=== PATIENT | female | born 1990 | race American Indian/Alaskan Native ===

== ENCOUNTER 2016-10-11 20:24 | Emergency (ER) | payer MEDICAID ==
[2016-10-11 21:06] VITALS: BP 127/76
== END 2016-10-11 20:39 | disposition left against medical advice (07) ==
LOC: ED 20:24
DX: R11.0 Nausea (principal); Z53.21 Procedure and treatment not carried out due to patient leaving prior to being seen by health care provider

== ENCOUNTER 2016-10-18 09:32 | Emergency (ER) | payer SELFPAY ==
[2016-10-18] MEDS ORDERED: NACL 0.9% 1000 ML 1,000 ML IV ONE (10:18)
[2016-10-18 10:20] VITALS: BP 121/85
--- NOTE | 2016-10-18 10:22 | Emergency Department Report ---
Entered by REYNALDO DAWN, acting as scribe for SHAVON SMITH NP. Chief Complaint: Chest Pain Stated Complaint: CHEST PAIN/COUGH/SEVERE NAUSEA/10 WKS PREG Time Seen by Provider: 10/18/16 10:14 - HPI History of Present Illness: 26 y/o female presents with cough that started 9 days ago. Sx include n/v, abd pain and cold Sx. Pt notes being about 9 weeks . She also notes being here 4 days ago but left because the wait was long. - ROS Review of Systems: +abd pain +cough +cold Sx +n/v - Exam Vital Signs: Vital Signs 10/18/16 10:16 Temperature 98.5 F Pulse Rate 87 Respiratory 20 Rate Blood Pressure 121/85 O2 Sat by Pulse 98 Oximetry Physical Exam: no respiratory distress no wheezing or rhonchi noted MSE screening note: Focused history and physical exam performed. Due to findings the following was ordered: labs, IVFs ED Disposition for MSE Condition: Stable This documentation as recorded by the scribe,REYNALDO DAWN,accurately reflects the service I personally performed and the decisions made by SARAH villegas TRACY M, NP.
[2016-10-18 11:19] LABS: Basophils % (Auto) 0.5 % (0.0-1.8); Eosinophils % (Auto) 0.2 % (0.0-4.3); Hematocrit 34.8 % (30.3-42.9); Hemoglobin 11.1 gm/dl (10.1-14.3); Mean Corpuscular HGB Conc 32 % (30-34); Mean Corpuscular Hemoglobin 25 pg (28-32); Mean Corpuscular Volume 77 fl (79-97); Platelet Count 270 K/mm3 (140-440); Red Blood Count 4.52 M/mm3 (3.65-5.03); Red Cell Distribution Width 18.3 % (13.2-15.2)
[2016-10-18 11:40] LABS: Alanine Aminotransferase 9 units/L (7-56); Albumin 4.4 g/dL (3.9-5); Albumin/Globulin Ratio 1.1 %; Alkaline Phosphatase 46 units/L (35-129); Anion Gap 22 mmol/L; Blood Urea Nitrogen 9 mg/dL (7-17); Calcium 9.8 mg/dL (8.4-10.2); Carbon Dioxide 22 mmol/L (22-30); Glucose 82 mg/dL (65-100); Sodium 135 mmol/L (137-145); Total Protein 8.5 g/dL (6.3-8.2)
[2016-10-18 11:51] LABS: Bilirubin,Urine NEG (Negative); Blood,Urine NEG (Negative); Ketones,Urine 80 mg/dL (Negative); Leukocyte Esterase,Urine NEG (Negative); Mucus,Urine 3+ /HPF; Nitrite,Urine NEG (Negative)
[2016-10-18] MEDS ORDERED: REGLAN IV ONE (12:33)
--- NOTE | 2016-10-18 12:49 | Emergency Department Report ---
- General Chief Complaint: Upper Respiratory Infection Stated Complaint: CHEST PAIN/COUGH/SEVERE NAUSEA/10 WKS PREG Time Seen by Provider: 10/18/16 10:14 Source: patient Mode of arrival: Ambulatory Limitations: No Limitations - History of Present Illness Initial Comments: This is a 26-year-old female nontoxic, well nourished in appearance, no acute signs of distress deficit ED complaining of yellow/green productive cough and rhinorrhea 9 days. The child states she has intermittent nausea vomiting 9 weeks. The patient states she is 9 weeks and is confirmed with her [employer] 3 weeks ago. Last visit with OB was 3 weeks ago with normal exam. Patient stated n/v is normal during her pregnancies. Patient denies any vaginal bleeding, abdominal pain, fever, chills, nausea, vomiting, chest pain, short of breath, stiff neck, or headache. Patient denies any sick contact. Denies any drug allergies or past medical history. MD Complaint: cough, rhinorrhea, other (nausea vomiting) -: Gradual, days(s) (9) Severity: mild Severity scale (0 -10): 0 Consistency: constant Worsens With: nothing Associated Symptoms: denies other symptoms, rhinorrhea, cough, nausea, vomiting. denies: fever, chills, myalgias, diaphoresis, headache, nasal congestion, sore throat, stiff neck, chest pain, shortness of breath, abdominal pain, diarrhea, dysuria, rash, confusion, right sweats, weight loss, epistaxis, hoarseness, ear pain Treatments Prior to Arrival: none - Related Data Previous Rx's Medication Instructions Recorded Last Taken Type Amoxicillin 500 mg PO BID #20 capsule 10/18/16 Unknown Rx Doxylamine/Pyridoxine HCl 1 each PO BID #30 tablet. 10/18/16 Unknown Rx [Anna Reid 10-10 mg Tablet] Allergies Allergy/AdvReac Type Severity Reaction Status Date / Time No Known Allergies Allergy Unverified 10/11/16 21:08 ED Review of Systems ROS: Stated complaint: CHEST PAIN/COUGH/SEVERE NAUSEA/10 WKS PREG Other details as noted in HPI Constitutional: denies: chills, fever Eyes: denies: eye pain, eye discharge, vision change ENT: denies: ear pain, throat pain Respiratory: cough. denies: shortness of breath, SOB with exertion, SOB at rest , wheezing Cardiovascular: denies: chest pain, palpitations Endocrine: no symptoms reported Gastrointestinal: nausea, vomiting. denies: abdominal pain, diarrhea, constipation, hematemesis, melena, hematochezia Genitourinary: denies: urgency, dysuria, discharge Musculoskeletal: denies: back pain, joint swelling, arthralgia Skin: denies: rash, lesions Neurological: denies: headache, weakness, paresthesias Psychiatric: denies: anxiety, depression Hematological/Lymphatic: denies: easy bleeding, easy bruising ED Past Medical Hx - Past Medical History Previous Medical History?: Yes Additional medical history: vaginal dleivery x 2 - Surgical History Past Surgical History?: Yes Additional Surgical History: [place] tooth removed, Dental surgery - Social History Smoking Status: Never Smoker Substance Use Type: Non Opiate Pain - Medications Home Medications: Home Medications Medication Instructions Recorded Confirmed Last Taken Type Amoxicillin 500 mg PO BID #20 capsule 10/18/16 Unknown Rx Doxylamine/Pyridoxine HCl 1 each PO BID #30 tablet. 10/18/16 Unknown Rx [Anna Reid 10-10 mg Tablet] ED Physical Exam - General Limitations: No Limitations General appearance: alert, in no apparent distress - Head Head exam: Present: atraumatic, normocephalic, normal inspection - Eye Eye exam: Present: normal appearance, PERRL, EOMI. Absent: scleral icterus, conjunctival injection, nystagmus, periorbital swelling, periorbital tenderness Pupils: Present: normal accommodation - ENT ENT exam: Present: normal exam, normal orophraynx, mucous membranes moist, TM's normal bilaterally, normal external ear exam - Neck Neck exam: Present: normal inspection, full ROM. Absent: tenderness, meningismus, lymphadenopathy, thyromegaly - Respiratory Respiratory exam: Present: normal lung sounds bilaterally. Absent: respiratory distress, wheezes, rales, rhonchi, stridor, chest wall tenderness, accessory muscle use, decreased breath sounds, prolonged expiratory - Cardiovascular Cardiovascular Exam: Present: regular rate, normal rhythm, normal heart sounds. Absent: bradycardia, tachycardia, irregular rhythm, systolic murmur, diastolic murmur, rubs, gallop - GI/Abdominal GI/Abdominal exam: Present: soft, normal bowel sounds. Absent: distended, tenderness, guarding, rebound, rigid, diminished bowel sounds - Expanded GI/Abdominal Exam Expanded GI/Abdominal exam: Absent: psoas sign, obturator sign, heel tap sign, Murray's sign, Rovsing's sign, tenderness at [place]bur[place]'s Point, ascites - Rectal Rectal exam: Present: deferred - Extremities Exam Extremities exam: Present: normal inspection, full ROM, normal capillary refill. Absent: tenderness, pedal edema, joint swelling, calf tenderness - Back Exam Back exam: Present: normal inspection, full ROM. Absent: tenderness, CVA tenderness (R), CVA tenderness (L), muscle spasm, paraspinal tenderness, vertebral tenderness, rash noted - Neurological Exam Neurological exam: Present: alert, oriented X3, CN II-XII intact, normal gait, reflexes normal - Psychiatric Psychiatric exam: Present: normal affect, normal mood - Skin Skin exam: Present: warm, dry, intact, normal color. Absent: rash ED Course Vital Signs 10/18/16 10:16 Temperature 98.5 F Pulse Rate 87 Respiratory 20 Rate Blood Pressure 121/85 O2 Sat by Pulse 98 Oximetry - Reevaluation(s) Reevaluation #1: 10/18/16 12:59 Patient is speaking in full sentences with no signs of distress noted. Reevaluation #2: 10/18/16 13:10 Patient stated n/v has subsided after medical treatment in the eD. patient tolerated by mouth challenge well with no signs of nausea vomiting. ED Medical Decision Making - Lab Data Result diagrams: 10/18/16 10:59 10/18/16 10:59 - Medical Decision Making Ed course: This is a 26-year-old female that presents with upper resp infection Pt was examined by myself. Patient is stable. Patient received Reglan IV and stated she felt much better. By mouth challenge successful with no signs of nausea or vomiting. Patient be treated with amoxicillin at discharge. Was instructed to follow-up with her resident physician/primary care doctor in 3-5 days or symptoms worsen return to emergency room as was possible. Received 1 L of normal saline in the ED. At time time of discharge, the patient does not seem toxic or ill in appearance. No acute signs of distress noted. Patient agrees to discharge treatment plan of care. No further questions noted by the patient. Critical care attestation.: If time is entered above; I have spent that time in minutes in the direct care of this critically ill patient, excluding procedure time. ED Disposition Clinical Impression: Hyperemesis gravidarum Upper respiratory infection Qualifiers: URI type: unspecified URI Qualified Code(s): J06.9 - Acute upper respiratory infection, unspecified Disposition: - TO HOME OR SELFCARE Is pt being admited?: No Does the pt Need Aspirin: No Condition: Stable Instructions: Amoxicillin (By mouth), Hyperemesis Gravidarum (ED) Additional Instructions: Follow-up with your primary care doctor/resident physician in 3-5 days or if symptoms worsen and continue return to emergency room as soon as possible. Take amoxicillin as prescribed Take doxylamine-pyridoxine as prescribed for nausea or vomiting. Initial: Two tablets at bedtime on day 1 and 2; if symptoms persist, take 1 tablet in morning and 2 tablets at bedtime on day 3; if symptoms persist, may increase to 1 tablet in morning, 1 tablet mid-afternoon, and 2 tablets at bedtime on day 4 ( maximum: doxylamine 40 mg/pyridoxine 40 mg (4 tablets) per day). Prescriptions: Amoxicillin 500 mg PO BID #20 capsule Doxylamine/Pyridoxine HCl [Anna Reid 10-10 mg Tablet] 1 each PO BID #30 tablet. Referrals: PRIMARY CARE, [Primary Care Provider] - 3-5 Days ADONAY CUELLAR MD [Staff Physician] - 3-5 Days LEANNE MIRAMONTES MD [Staff Physician] - 3-5 Days [facility] [Outside] - 3-5 Days [facility] [Outside] - 3-5 Days Forms: Work/School Release Form(ED)
== END 2016-10-18 13:25 | disposition home or self-care (01) ==
LOC: ED 09:32
DX: O21.0 Mild hyperemesis gravidarum (principal); O99.511 Diseases of the respiratory system complicating pregnancy, first trimester; J06.9 Acute upper respiratory infection, unspecified; Z3A.09 9 weeks gestation of pregnancy
CPT/HCPCS: 36415; 80053; 81001; 83690; 84702; 85025; 86900; 86901; 96361; 96374; 99283; J2765; J7030

== ENCOUNTER 2017-01-18 08:46 | Outpatient (CLI) | payer MEDICAID ==
--- NOTE | 2017-01-18 11:41 | Ultrasound Report ---
ULTRASOUND PELVIC COMPLETE ULTRASOUND TRANSVAGINAL HISTORY: Abdominal pain, pelvic pain, cyst, abscess. COMPARISON: None. TECHNIQUE: Transabdominal and transvaginal ultrasound with color doppler interrogation. FINDINGS: Uterus: The uterus is anteverted. The uterus measures 9.4 x 3.7 x 6.5 cm. No evidence for uterine mass. Cervix: Normal. Endometrium: 14 mm. Right ovary: 4.2 x 2.7 x 3.9 cm. A 2.5 cm slightly complex cyst in the right ovary is identified. Left ovary: 2.2 x 1.3 x 2.6 cm. No focal abnormality. No pelvic fluid or mass is identified. Normal color doppler interrogation. IMPRESSION: 2.5 cm complex right ovarian cyst. Consider followup in 6 weeks at a different stage of menstrual cycle.
== END 2017-01-18 08:47 | disposition home or self-care (01) ==
LOC: US 08:46
PROVIDERS: ATTEND Obstetrics & Gynecology
DX: N83.291 Other ovarian cyst, right side (principal); N85.4 Malposition of uterus
CPT/HCPCS: 76830; 76856

== ENCOUNTER 2017-04-24 09:31 | Emergency (ER) | payer MEDICAID ==
[2017-04-24 10:48] LABS: BUN/Creatinine Ratio 18; Blood Urea Nitrogen 11 mg/dL (7-17); Calcium 9.3 mg/dL (8.4-10.2); Hemolysis Index 4
[2017-04-24 10:51] LABS: Hematocrit 33.3 % (30.3-42.9); Hemoglobin 10.8 gm/dl (10.1-14.3); Mean Corpuscular HGB Conc 32 % (30-34); Mean Corpuscular Volume 77 fl (79-97); Platelet Count 238 K/mm3 (140-440); Red Blood Count 4.33 M/mm3 (3.65-5.03); Red Cell Distribution Width 15.6 % (13.2-15.2)
[2017-04-24 10:58] LABS: Mean Corpuscular Hemoglobin 25 pg (28-32)
--- NOTE | 2017-04-24 11:46 | Ultrasound Report ---
ULTRASOUND OB LESS THAN 14 WEEKS FETUS ULTRASOUND OB TRANSVAGINAL HISTORY: Cramping. COMPARISON: None. TECHNIQUE: Transabdominal and transvaginal ultrasound with color doppler interrogation. FINDINGS: Uterus: 9 x 5 x 6 cm. No uterine mass. The cervix is unremarkable. Endometrium: The endometrium is thickened up to 2.3 cm. There is either a tear-shaped gestational sac or fluid in the endometrial canal. No convincing pole, yolk sac or heart tones are demonstrated.. Right ovary: 4.3 x 2.2 x 3.5 cm. Probable 2.7 cm corpus luteum cyst. Left ovary: 2.3 x 1.6 x 1.3 cm. No focal abnormality. No pelvic fluid or mass is identified. Normal color doppler interrogation. IMPRESSION: No viable intrauterine is identified at this time. There is a slightly abnormal appearing gestational sac or fluid in the endometrial canal. No pole or heart tones at this time. This could represent a very early or blighted ovum. Close interval followup is recommended.
[2017-04-24 12:38] LABS: Bilirubin,Urine NEG (Negative); Blood,Urine NEG (Negative); Color,Urine Yellow (Yellow); Mucus,Urine 2+ /HPF; Protein,Urine <15 mg/dL mg/dL (Negative)
--- NOTE | 2017-04-24 14:07 | Emergency Department Report ---
HPI - General Chief Complaint: Medical Clearance Time Seen by Provider: 04/24/17 13:45 - HPI HPI: 26 year-old female presents the emergency department with complaint of possible . 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 She says her last menstrual cycle was March 22. Prior to that she had a positive home test and then after the , after she started bleeding, she had a negative home test. She has not seen an RETAIL STOCK CLERK yet. She says that the last few days she has woke up feeling "shaky" and that prompted her to take a home test today which came back positive. She denies any past medical history. She does not currently have an RETAIL STOCK CLERK. She has not taken anything for her symptoms have presentation. She denies any vaginal bleeding, abdominal or pelvic pain, back pain, nausea, vomiting or fever. No recent travel or sick contacts at home. ED Past Medical Hx - Past Medical History Previous Medical History?: No Additional medical history: vaginal dleivery x 2, hx of 3 miscarriages - Surgical History Past Surgical History?: No Additional Surgical History: [place] tooth removed, Dental surgery - Social History Smoking Status: Never Smoker Substance Use Type: None - Medications Home Medications: Home Medications Medication Instructions Recorded Confirmed Last Taken Type Amoxicillin 500 mg PO BID #20 capsule 10/18/16 Unknown Rx Doxylamine Succinate/Vit B6 1 each PO BID #30 tablet. 10/18/16 Unknown Rx [Anna Reid 10-10 mg Tablet] Vit-Fe Fumar-FA [ 1 tab PO QDAY #30 tablet 04/24/17 Unknown Rx Vitamin] ED Review of Systems ROS: Stated complaint: HCG CHECKED Other details as noted in HPI Comment: All other systems reviewed and negative Constitutional: denies: chills, fever Eyes: denies: eye pain, eye discharge, vision change ENT: denies: ear pain, throat pain Respiratory: denies: cough, shortness of breath, wheezing Cardiovascular: denies: chest pain, palpitations Gastrointestinal: denies: abdominal pain, nausea, diarrhea Genitourinary: denies: urgency, dysuria, discharge Musculoskeletal: denies: back pain, joint swelling, arthralgia Skin: denies: rash, lesions Neurological: denies: headache, weakness, paresthesias Physical Exam - Physical Exam Vital Signs: Vital Signs 04/24/17 09:56 Temperature 98.6 F Pulse Rate 89 Respiratory 16 Rate Blood Pressure 136/88 O2 Sat by Pulse 99 Oximetry Physical Exam: GENERAL: The patient is well-developed well-nourished. HENT: Normocephalic. Atraumatic. Patient has moist mucous membranes. EYES: Extraocular motions are intact. NECK: Supple. Trachea is midline. CHEST/LUNGS: Clear to auscultation. There is no respiratory distress noted. HEART/CARDIOVASCULAR: Regular. There is no tachycardia. There is no murmur. ABDOMEN: Abdomen is soft, nontender. Patient has normal bowel sounds. There is no abdominal distention. SKIN: Skin is warm and dry. NEURO: The patient is awake, alert, and oriented. The patient is cooperative. The patient has no focal neurologic deficits. The patient has normal speech. MUSCULOSKELETAL: There is no tenderness or deformity. There is no limitation range of motion. There is no evidence of acute injury. ED Course Vital Signs 04/24/17 09:56 Temperature 98.6 F Pulse Rate 89 Respiratory 16 Rate Blood Pressure 136/88 O2 Sat by Pulse 99 Oximetry ED Medical Decision Making - Lab Data Result diagrams: 04/24/17 10:14 04/24/17 10:14 - Radiology Data Radiology results: report reviewed ULTRASOUND OB LESS THAN 14 WEEKS FETUS ULTRASOUND OB TRANSVAGINAL HISTORY: Cramping. COMPARISON: None. TECHNIQUE: Transabdominal and transvaginal ultrasound with color doppler interrogation. FINDINGS: Uterus: 9 x 5 x 6 cm. No uterine mass. The cervix is unremarkable. Endometrium: The endometrium is thickened up to 2.3 cm. There is either a tear-shaped gestational sac or fluid in the endometrial canal. No convincing pole, yolk sac or heart tones are demonstrated.. Right ovary: 4.3 x 2.2 x 3.5 cm. Probable 2.7 cm corpus luteum cyst. Left ovary: 2.3 x 1.6 x 1.3 cm. No focal abnormality. No pelvic fluid or mass is identified. Normal color doppler interrogation. IMPRESSION: No viable intrauterine is identified at this time. There is a slightly abnormal appearing gestational sac or fluid in the endometrial canal. No pole or heart tones at this time. This could represent a very early or blighted ovum. Close interval followup is recommended. Transcribed By: TTR Dictated By: SUSU HALL JR, MD Electronically Authenticated By: SUSU HALL JR, MD Signed Date/Time: 04/24/17 1139 - Medical Decision Making Patient presents with a positive home test. Previous 3 miscarriages versus chemical pregnancies. Today. HCG is 125. Ultrasound shows possible early gestational sac versus blighted ovum. There is no abdominal/pelvic pain or any vaginal bleeding. I discussed all this with the patient and she will return either to the emergency department or to an RETAIL STOCK CLERK group in 3-5 days for a repeat hormone level and possibly a repeat ultrasound. If the normal level is increasing, then possibly this was a early . If the hormone level is decreasing, then this was a miscarriage versus chemical . She will be started on vitamins and we discussed cautions to take. She will return earlier with any worsening of her symptoms or any acute distress. - Differential Diagnosis , threatened miscarriage, chemical , blighted ovum Critical Care Time: No Critical care attestation.: If time is entered above; I have spent that time in minutes in the direct care of this critically ill patient, excluding procedure time. ED Disposition Clinical Impression: Threatened Qualifiers: Weeks of gestation: less than 8 weeks Qualified Code(s): Z3A.01 - Less than 8 weeks gestation of Disposition: - TO HOME OR SELFCARE Is pt being admited?: No Condition: Stable Instructions: (ED), Threatened Miscarriage (ED) Additional Instructions: Please follow up with an RETAIL STOCK CLERK or return to the emergency department in 3-5 days. Your hormone level today was 125. If your next beta hCG/ hormone is increasing, then this may have just been an early . If the hormone level is decreasing, then this may be a miscarriage and/or chemical . Return to the emergency department sooner with any worsening of her symptoms or any acute distress. I have started you on vitamins. Prescriptions: Vit-Fe Fumar-FA [ Vitamin] 1 tab PO QDAY #30 tablet Referrals: [facility] [Provider Group] - 3-5 Days [facility] [Provider Group] - 3-5 Days [facility] [Provider Group] - 3-5 Days Time of Disposition: 14:09
[2017-04-24 14:16] VITALS: BP 126/75
== END 2017-04-24 14:16 | disposition home or self-care (01) ==
LOC: ED 09:31
DX: O20.0 Threatened abortion (principal); Z3A.01 Less than 8 weeks gestation of pregnancy; Z88.8 Allergy status to other drugs, medicaments and biological substances
CPT/HCPCS: 36415; 76801; 76817; 80048; 81001; 84702; 85027; 86900; 86901; 99284